=== PATIENT | male | born 1995 | race Caucasian/White ===

== ENCOUNTER 2017-06-11 15:57 | Emergency (ER) | payer BC ==
[~2017-06-11] VITALS: Ht 175.3 cm; Wt 92.1 kg
[2017-06-11] MEDS ORDERED: ZIPRASIDONE 40MG CAPSULE PO STA (16:44)
[2017-06-11] MEDS ORDERED: NALT50TA PO (17:10)
[2017-06-11] MEDS ORDERED: ZIPR80CA3 PO (17:10)
[2017-06-11 19:36] LABS: HEMATOCRIT 47.2 % (39.2-51.8); WHITE BLOOD COUNT 9.3 x10^3/uL (3.4-10)
[2017-06-11 19:45] LABS: BLOOD UREA NITROGEN 6 mg/dL (7-18)
[2017-06-11 19:46] LABS: ACETAMINOPHEN < 2 mcg/mL (10-30)
[2017-06-11] MEDS ORDERED: RISPERIDONE 1 MG TABLET PO STA (20:54)
[2017-06-11 21:10] LABS: DAU SCREEN DISCLAIMER
[2017-06-11] MEDS ORDERED: TRAZODONE 50MG TABLET PO PRN (21:30)
[2017-06-11] MEDS ORDERED: LORazepam 2 MG/ML, 1ML IM PRN (21:30)
[2017-06-11] MEDS ORDERED: BENZTROPINE 1 MG TABLET PO PRN (21:30)
[2017-06-11] MEDS ORDERED: ZIPRASIDONE 20 MG INJ IM PRN (21:30)
[2017-06-12] MEDS ORDERED: NALTREXONE PO SCH (09:00)
[2017-06-12 10:35] VITALS: BP 128/76
[2017-06-12] MEDS ORDERED: ZIPRASIDONE HCL 80 MG PO SCH (21:00)
== END 2017-06-12 16:07 ==
LOC: ED 18:19 → UNDOADMOB 20:58 → EDIP 20:58 → ED 06-12 16:07
DX: F20.0 Paranoid schizophrenia (principal)
CPT/HCPCS: 36415; 80048; 80307; 80329; 82040; 85025; 99285; G0480